=== PATIENT | female | born 1985 | race African-American/Black ===

== ENCOUNTER → 2021-09-29 13:03 | Outpatient (BNVA) | payer MEDICAID, SELFPAY | PROVIDERS: PCP Internal Medicine; Visit Provider Psychiatry & Neurology Neurology | DX: R56.9 Unspecified convulsions (principal); G93.49 Other encephalopathy; Z79.899 Other long term (current) drug therapy | CPT/HCPCS: 99212 ==

== ENCOUNTER → 2021-12-22 08:31 | Outpatient (BNVA) | payer MEDICAID, SELFPAY | PROVIDERS: PCP Internal Medicine; Visit Provider Psychiatry & Neurology Neurology | DX: R56.9 Unspecified convulsions (principal); G93.49 Other encephalopathy | CPT/HCPCS: 99212 ==

== ENCOUNTER → 2022-04-18 10:28 | Outpatient (BNVA) | payer MEDICAID, SELFPAY | PROVIDERS: PCP Internal Medicine; Visit Provider Psychiatry & Neurology Neurology | DX: R56.9 Unspecified convulsions (principal); G93.49 Other encephalopathy | CPT/HCPCS: 99212 ==

== ENCOUNTER → 2022-10-19 09:32 | Outpatient (BNVA) | payer OTHER, SELFPAY | PROVIDERS: PCP Internal Medicine; Visit Provider Psychiatry & Neurology Neurology | DX: G93.49 Other encephalopathy (principal); R56.9 Unspecified convulsions | CPT/HCPCS: 99212 ==

== ENCOUNTER 2023-04-26 09:15 | Outpatient (AMB) | payer OTHER, SELFPAY ==
--- NOTE | 2023-04-26 09:18 | A.OFFVIS_ITS ---
Intake Vital Signs 04/26/23 09:19 Height 4 ft 10 in Weight 103 lb 2 oz BMI 21.6 BP 112/62 Blood Pressure Location Lt brachial Position Sitting Respiration 17 Pulse 73 Pulse Source Pulse Oximeter Pulse Oximetry (%) 99 Oxygen Delivery Method Room Air Intake Visit Reasons: 6m f/u seizures - LVM Intake Note: Pt presents for a 6 month follow up for seizures. She is here with her mother who reports she has been the same since last visit. Border Measurer And Cutter Required: No Allergies amoxicillin Allergy (Intermediate, Verified 04/26/23 09:18) rash orange juice Allergy (Unknown, Verified 04/26/23 09:18) Hives tomato Allergy (Unknown, Verified 04/26/23 09:18) Hives Medication List - Last Reconciled 04/26/23 by Ina Terrazas MD cholecalciferol (vitamin D3) (Baby Vitamin D3) 10 mcg PO DAILY clindamycin phosphate 1% topical BID PRN dorzolamide-timolol 22.3-6.8 mg/mL 1 drp ophthalmic (eye) BID fluocinonide 0.05% topical 3XW ketoconazole 2% topical Lamictal (lamotrigine) 100 mg PO BID 90 days NS polyethylene glycol 3350 (Miralax) 17 grams PO DAILY tretinoin 0.05% (Retin-A) appl topical HPI HPI Comments History of Present Illness Details 37y/o female with static encephelopathy, developmental delay, blindness comes for follow up of her seizure disorder. She is accompanied by mother who help with history. OTC refresh drops helps her eyes. she is doing good.Her ears are good.No episodes of eye discomfort. Her seizures are stable on lamictal 100mg bid. Her bowel movements are better. Mood is better. Sleep is good. Needs a female Carpenters recommendation. [facility] Medical History Developmental delay of gross and fine motor function Seizures Blindness Static encephalopathy Surgical History H/O eye surgery Social History Alcohol intake: never Patient Tobacco Use Status: Never used Tobacco Physical Exam Vital Signs: Last Vital Signs Pulse 73 04/26/23 09:19 Resp 17 04/26/23 09:19 BP 112/62 04/26/23 09:19 Pulse Ox 99 04/26/23 09:19 Oxygen Delivery Method Room Air 04/26/23 09:19 BMI result Body Mass Index 21.6 Const General: cooperative, healthy appearing and comfortable Nutritional Appearance: average body habitus Orientation/consciousness: oriented to person Neuro Other: mild lordosis and tilt to left General: oriented to person, moves all extremities and no focal motor deficits Assessment & Plan Assessment & Plan (1) Seizures: Code(s): R56.9 - Unspecified convulsions (2) Static encephalopathy: Code(s): G93.49 - Other encephalopathy Plan continue lamictal 100mg bid Continue OTC refresh drops continue vitamins Orders: Orders Comprehensive Met. Panel Today F82 - Specific developmental disorder of motor function, R56.9 - Unspecified convulsions Complete Blood Count Auto Diff Today F82 - Specific developmental disorder of motor function, R56.9 - Unspecified convulsions Coding Level of Care Code Est Pt Level 4 (32831) Diagnoses Seizures R56.9 Static encephalopathy G93.49
[2023-04-26 09:19] VITALS: BP 112/62; PULSE 73; RESP 17; O2SAT 99; BMI 21.6
== END 2023-04-26 09:42 | disposition home or self-care (01) ==
PROVIDERS: Visit Provider Psychiatry & Neurology Neurology
DX: R56.9 Unspecified convulsions (principal); G93.49 Other encephalopathy
CPT/HCPCS: 99214

== ENCOUNTER → 2023-04-26 09:15 | Outpatient (BNVA) | payer OTHER, SELFPAY | PROVIDERS: Visit Provider Psychiatry & Neurology Neurology | DX: R56.9 Unspecified convulsions (principal); G93.49 Other encephalopathy | CPT/HCPCS: 99212 ==

== ENCOUNTER 2023-09-27 13:52 | Outpatient (AMB) | payer OTHER, SELFPAY ==
--- NOTE | 2023-09-27 13:58 | MHC.OFFVIS ---
Intake Vital Signs 09/27/23 14:01 Height 4 ft 10 in Weight 94 lb 4 oz BMI 19.7 BP 96/62 Blood Pressure Location Rt brachial Position Sitting Respiration 16 Pulse 78 Pulse Source Pulse Oximeter Intake Visit Reasons: 5 mnts f/u for Seizures-LVM Intake Note: Pt presents for a 5 month follow up for seizures. Advisory Software Engineer Required: No Allergies amoxicillin Allergy (Intermediate, Verified 09/27/23 14:00) rash orange juice Allergy (Unknown, Verified 09/27/23 14:00) Hives tomato Allergy (Unknown, Verified 09/27/23 14:00) Hives HPI HPI Comments History of Present Illness Details 38y/o female with static encephelopathy,developmental delay, blindness comes for follow up of her seizure disorder. She is accompanied by mother who help with history. OTC refresh drops helps her eyes. she is doing good.Her ears are good.No episodes of eye discomfort. Her seizures are stable on lamictal 100mg bid. Her bowel movements are better. Mood is better. Sleep is good. [facility] Medical History Developmental delay of gross and fine motor function Seizures Blindness Static encephalopathy Surgical History H/O eye surgery Social History Alcohol intake: never Patient Tobacco Use Status: Never used Tobacco Physical Exam Vital Signs: Last Vital Signs Pulse 78 09/27/23 14:01 Resp 16 09/27/23 14:01 BP 96/62 09/27/23 14:01 BMI result Body Mass Index 19.7 Const General: cooperative, healthy appearing and comfortable Nutritional Appearance: average body habitus Orientation/consciousness: oriented to person Neuro Other: mild lordosis and tilt to left General: oriented to person, moves all extremities and no focal motor deficits Assessment & Plan Assessment & Plan (1) Seizures: Code(s): R56.9 - Unspecified convulsions (2) Static encephalopathy: Code(s): G93.49 - Other encephalopathy Plan continue lamictal 100mg bid Continue OTC refresh drops continue vitamins Coding Level of Care Code Est Pt Level 4 (12831) Diagnoses Seizures R56.9 Static encephalopathy G93.49
[2023-09-27 14:01] VITALS: BP 96/62; PULSE 78; RESP 16; BMI 19.7
== END 2023-09-27 14:21 | disposition home or self-care (01) ==
LOC: HO.HSMS 13:52
PROVIDERS: PCP Internal Medicine; Visit Provider Psychiatry & Neurology Neurology
DX: R56.9 Unspecified convulsions (principal); G93.49 Other encephalopathy
CPT/HCPCS: 99214

== ENCOUNTER → 2023-09-27 13:52 | Outpatient (BNVA) | payer OTHER, SELFPAY | PROVIDERS: PCP Internal Medicine; Visit Provider Psychiatry & Neurology Neurology | DX: G93.49 Other encephalopathy (principal); R56.9 Unspecified convulsions | CPT/HCPCS: 99212 ==

== ENCOUNTER 2024-04-01 08:19 | Outpatient (AMB) | payer OTHER, SELFPAY ==
[2024-04-01 08:28] VITALS: BP 108/70; BMI 19.5
--- NOTE | 2024-04-01 08:28 | A.OFFVIS_ITS ---
Vital Signs 04/01/24 08:28 Height 4 ft 10 in Weight 93 lb 6 oz BMI 19.5 BP 108/70 Blood Pressure Location Rt brachial Position Sitting Intake Visit Reasons: 6 month F/U Intake Note: Patient presents for follow up. patient not sleeping again. Allergies amoxicillin Allergy (Intermediate, Verified 04/01/24 08:35) rash orange juice Allergy (Unknown, Verified 04/01/24 08:35) Hives tomato Allergy (Unknown, Verified 04/01/24 08:35) Hives Medication List - Last Reconciled 04/01/24 by Ina Terrazas MD cholecalciferol (vitamin D3) (Baby Vitamin D3) 10 mcg PO DAILY clindamycin phosphate 1% topical BID PRN dorzolamide-timolol 22.3-6.8 mg/mL 1 drp ophthalmic (eye) BID fluocinonide 0.05% topical 3XW ketoconazole 2% topical Lamictal (lamotrigine) 100 mg PO BID 30 days NS polyethylene glycol 3350 (Miralax) 17 grams PO DAILY tretinoin 0.05% (Retin-A) appl topical HPI Comments Details: 38y/o female with static encephelopathy,developmental delay, blindness comes for follow up of her seizure disorder. She is accompanied by mother who help with history. No seizure . But she lost about 7 lbs and her mother thinks it is related to stress - from first mammogram and also deep cleaning. OTC refresh drops helps her eyes. she is doing good.Her ears are good.No episodes of eye discomfort. Her seizures are stable on lamictal 100mg bid. Her bowel movements are better. Mood is better. Sleep is good. [facility] Medical History Developmental delay of gross and fine motor function Seizures Blindness Static encephalopathy Surgical History H/O eye surgery Social History Alcohol intake: never Patient Tobacco Use Status: Never used Tobacco Physical Exam Vital Signs: Last Vital Signs BP 108/70 04/01/24 08:28 BMI result Body Mass Index 19.5 Const General: cooperative, healthy appearing and comfortable Nutritional Appearance: average body habitus Orientation/consciousness: oriented to person Neuro Other: mild lordosis and tilt to left General: oriented to person, moves all extremities and no focal motor deficits Assessment & Plan Assessment & Plan (1) Seizures: Code(s): R56.9 - Unspecified convulsions Category: Medical (2) Static encephalopathy: Code(s): G93.49 - Other encephalopathy Category: Medical Plan continue lamictal 100mg bid- BRAND NAME ONLY .Patient has reaction to generic lamotrigine with breakthrough seizures. Continue OTC refresh drops continue vitamins weight loss likely related to stress - from mammogram . she will a good candidate for MRI breast instead of mammogram. Medications: Changed From Lamictal (lamotrigine) 100 mg PO BID 30 days 60 tabs 6RF NS To Lamictal (lamotrigine) Needs name brand only - patient has reaction to generic lamotrigine 100 mg PO BID 30 days 60 tabs 6RF NS Coding Level of Care Code Est Pt Level 4 (83751) Complex EM visit Add On G2211 Diagnoses Seizures R56.9 Static encephalopathy G93.49
== END 2024-04-01 09:12 | disposition home or self-care (01) ==
PROVIDERS: PCP Internal Medicine; Visit Provider Psychiatry & Neurology Neurology
DX: R56.9 Unspecified convulsions (principal); G93.49 Other encephalopathy
CPT/HCPCS: 99214; G2211

== ENCOUNTER → 2024-04-01 08:19 | Outpatient (BNVA) | payer OTHER, SELFPAY | PROVIDERS: PCP Internal Medicine; Visit Provider Psychiatry & Neurology Neurology | DX: R56.9 Unspecified convulsions (principal); G93.49 Other encephalopathy | CPT/HCPCS: 99212 ==

== ENCOUNTER 2024-10-14 07:57 | Outpatient (AMB) | payer OTHER, SELFPAY ==
[2024-10-14 08:01] VITALS: BP 104/70; PULSE 87; O2SAT 98; BMI 19.3
--- NOTE | 2024-10-14 08:01 | A.OFFVIS_ITS ---
Vital Signs 10/14/24 08:01 Height 4 ft 10 in Weight 92 lb 8 oz BMI 19.3 BP 104/70 Blood Pressure Location Rt brachial Position Sitting Pulse 87 Pulse Source Pulse Oximeter Pulse Oximetry (%) 98 Oxygen Delivery Method Room Air Intake Visit Reasons: 6 month F/U-LVM Intake Note: Patient presents for follow up seizures. Allergies amoxicillin Allergy (Intermediate, Verified 10/14/24 08:04) rash orange juice Allergy (Unknown, Verified 10/14/24 08:04) Hives tomato Allergy (Unknown, Verified 10/14/24 08:04) Hives Medication List - Last Reconciled 10/14/24 by Ina Terrazas MD cholecalciferol (vitamin D3) (Baby Vitamin D3) 10 mcg PO DAILY cholecalciferol (vitamin D3) 10 mcg PO DAILY clindamycin phosphate 1% topical BID PRN dorzolamide-timolol 22.3-6.8 mg/mL 1 drp ophthalmic (eye) BID fluocinonide 0.05% topical 3XW ketoconazole 2% topical Lamictal (lamotrigine) 100 mg PO BID 30 days NS polyethylene glycol 3350 (Miralax) 17 grams PO DAILY tretinoin 0.05% (Retin-A) appl topical HPI Comments Details: 39y/o female with static encephelopathy,developmental delay, blindness comes for follow up of her seizure disorder. She is accompanied by mother who help with history. No seizure . But she lost about 7 lbs and her mother thinks it is related to stress - from first mammogram and also deep cleaning. OTC refresh drops helps her eyes. she is doing good.Her ears are good.No episodes of eye discomfort. Her seizures are stable on lamictal 100mg bid. Her bowel movements are better. Mood is better. Sleep is good. [facility] Medical History Developmental delay of gross and fine motor function Seizures Blindness Static encephalopathy Surgical History H/O eye surgery Social History Alcohol intake: never Patient Tobacco Use Status: Never used Tobacco Physical Exam Vital Signs: Last Vital Signs Pulse 87 10/14/24 08:01 BP 104/70 10/14/24 08:01 Pulse Ox 98 10/14/24 08:01 Oxygen Delivery Method Room Air 10/14/24 08:01 BMI result Body Mass Index 19.3 Const General: cooperative, healthy appearing and comfortable Nutritional Appearance: average body habitus Orientation/consciousness: oriented to person Neuro Other: mild lordosis and tilt to left General: oriented to person, moves all extremities and no focal motor deficits Assessment & Plan Assessment & Plan (1) Seizures: Code(s): R56.9 - Unspecified convulsions Category: Medical (2) Static encephalopathy: Code(s): G93.49 - Other encephalopathy Category: Medical Plan continue lamictal 100mg bid- BRAND NAME ONLY .Patient has reaction to generic lamotrigine with breakthrough seizures. Continue OTC refresh drops continue vitamins weight loss likely related to stress - from mammogram . she will a good candidate for MRI breast instead of mammogram. Medications: Refilled Lamictal (lamotrigine) Needs name brand only - patient has reaction to generic lamotrigine 100 mg PO BID 30 days 60 tabs 6RF NS Coding Level of Care Code Est Pt Level 4 (51976) Diagnoses Seizures R56.9 Static encephalopathy G93.49
--- OUTSIDE RECORDS SUMMARY | 2024-10-14 08:01 | XMS_ITS ---
Author Organization [facility] Address [address] [address] Care Team Providers Care Master Data Analyst Name Role Phone Marija Hidalgo Primary Care Provider SIVAN Hoskins Unavailable [phone] REASON FOR VISIT 3 month f/u Encounters Encounter Location Date Provider Diagnosis [facility] [address] [address] 08/02/2024 SIVAN ÁLVAREZ Plan Of Treatment No Information Progress Notes * Santa LANCASTERDOB:1985 (39 yo F)Acc No.[id number]:08/02/2024 Patient:?Gian LANCASTERoney Provider:?Sivan Álvarez DPM :1985???Age:39 Y???Sex:Female D ate:08/02/2024 Phone: Address:[address] [phone] Pcp:Marija Hidalgo Subjective: * Chief Complaints: * ???1. 3 month f/u. * Medical History:? Objective: * Vitals:? Assessment: Plan: * Treatment: * Billing Information: * Visit Code:? * Procedure Codes:? * Electronic signature of PRASANNA ÁLVAREZ D.P.M on 10/14/2024 at 08:01 AM EDT Sign off status: Pending * Provider:?Sivan Álvarez DPM Date:? 08/02/2024 Generated for Casandra paz/Lin/eTransmitting on:?10/14/2024 08:01 AM EDT
--- OUTSIDE RECORDS SUMMARY | 2024-10-14 08:01 | XMS_ITS | Patient Health Record ---
Author Organization [facility] Address [address] [address] Care Team Providers Care Marketing Lead Name Role Phone Marija Hidalgo Primary Care Provider CHATA Hoskins Unavailable [phone] Allergies Allergen (clinical drug ingredient) Drug/Non Drug Allergy documented on EMR Reaction Allergy Type Onset Date Status Tom Green Unknown Drug Allergy Active amoxicillin Amoxicillin Unknown Drug Allergy Act lionel Tomatoes Unknown Allergy Active Reason For Referral No Information Medications Medication SIG (Take, Route, Frequency, Duration) Notes Start Date End Date Status Tretinoin 0.025 % 1 application in the evening to face Externally Once a day Active Polyethylene Glycol 3350 17 GM/SCOOP 1 scoop mixed with 8 ounces of fluid Orally Once a day Active lamoTRIgine 100 MG 1 tablet Orally Once a day Active Ketoconazole 2 % 1 application Grinding Wheel Inspector ally Once a day Active Dorzolamide HCl-Timolol Mal 2-0.5 % 1 drop into affected eye Ophthalmic Twice a day Active Aqueous Vitamin D 10 MCG/ML as directed Orally Active Problems Problem Type SNOMED Code ICD Code Onset Dates Problem Status W/U Status Risk Notes Problem [id number] Acquired hammer toe (M20.40) Active confirmed Vital Signs Heart Rate 76 /min 04/26/2024 Temperature 97.4 degrees Fahrenheit 04/26/2024 Respiratory Rate 12 /min 04/26/2024 Height 4ft 9in in 04/26/2024 Weight 92.7 lbs 04/26/2024 BMI 20.06 kg/m2 04/26/2024 Encounters Encounter Location Date Provider Diagnosis [facility] [address] [address] 04/26/2024 CHATA STEWART 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 ; 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 ; Acquired hammer toe M20.40 ; Flat foot [pes planus] (acquired), right foot M21.41 and Flat foot [pes planus] (acquired), left foot M21.42 [facility] [address] [address] 04/19/2024 CHATA STEWART [facility] [address] [address] 09/18/2024 CHATA STEWART Assessments Encounter Date Diagnosis (ICD Code) Assessment Notes Treatment Notes Treatment Clinical Notes Section Notes 04/26/2024 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 Time was 45 minutes spent in review of all these facets including face to face discussion with the patient regarding my findings and in discussion of a current and future treatment plan. 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 We discussed this is caused by genetics and it is a structural deformity. We discussed this is also compounded by the elongated 2nd metatarsal. We discussed orthotics can help stabilize the deformity but will not correct the deformity. Toe spacers can help separate the toes but will not correct the deformity. Wider shoes can help with improvement of pain but will not alter the deformity. I dispensed Velcro toe straps to use on the 2nd and 3rd toes and the 4th and 5th toes. She is to wear this nightly for the next 3 months. We discussed a follow-up at that time to evaluate positioning of the toes. We discussed over the counter inserts and appropriate sneakers for the patient. We discussed the OTC inserts are beneficial in older pairs of shoes. I would like to see the patient back in 3 months for another evaluation. The patient is in agreement with this plan. 04/26/2024 Acquired hammer toe (ICD-10 - M20.40) 04/26/2024 Flat foot [pes planus] (acquired), right foot (ICD-10 - M21.41) 04/26/2024 Flat foot [pes planus] (acquired), left foot (ICD-10 - M21.42) Plan Of Treatment Pending Test Test Name Order Date X ray : Foot, left 3v 04/26/2024 X ray : Foot, right 3v 04/26/2024 Medical (General) History Medical History History ICD Code cerumen impaction constipation developmental delay glaucoma history of vitamin D deficiency psoriasis raynauds phenomenon seizure disorder COVID vaccinated X 5 Surgical History Surgery Date(Month/Year) strabismus repair
--- OUTSIDE RECORDS SUMMARY | 2024-10-14 08:01 | XMS_ITS ---
Author Organization [facility] Address [address] [address] Care Team Providers Care Engine Lathe Tender Name Role Phone Marija Hidalgo Primary Care Provider SIVAN Hoskins Unavailable [phone] Allergies Allergen (clinical drug ingredient) Drug/Non Drug Allergy documented on EMR Reaction Allergy Type Onset Date Status Redkey Unknown Drug Allergy Active amoxicillin Amoxicillin Unknown Drug Allergy Act lionel Tomatoes Unknown Allergy Active REASON FOR VISIT Rt foot toes overlapping Medications Medication SIG (Take, Route, Frequency, Duration) Notes Start Date End Date Status Tretinoin 0.025 % 1 application in the evening to face Externally Once a day Active Polyethylene Glycol 3350 17 GM/SCOOP 1 scoop mixed with 8 ounces of fluid Orally Once a day Active lamoTRIgine 100 MG 1 tablet Orally Once a day Active Ketoconazole 2 % 1 application Public Stenographer ally Once a day Active Dorzolamide HCl-Timolol Mal 2-0.5 % 1 drop into affected eye Ophthalmic Twice a day Active Aqueous Vitamin D 10 MCG/ML as directed Orally Active Problems Problem Type SNOMED Code ICD Code Onset Dates Problem Status W/U Status Risk Notes Problem [id number] Acquired hammer toe (M20.40) Active confirmed Vital Signs Temperature 97.4 degrees Fahrenheit 04/26/20 24 Heart Rate 76 /min 04/26/2024 Respiratory Rate 12 /min 04/26/2024 Height 4ft 9in in 04/26/2024 Weight 92.7 lbs 04/26/2024 BMI 20.06 kg/m2 04/26/2024 Encounters Encounter Location Date Provider Diagnosis [facility] [address] [address] 04/26/2024 SIVAN ÁLVAREZ 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 ; 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 Time was 45 minutes spent in review [...] patient is in agreement with this plan. Pending Test Test Name Order Date X ray : Foot, left 3v 04/26/2024 X ray : Foot, right 3v 04/26/2024 Next Appt Details Follow Up: 3 Months, Reason: Progress Notes * Santa LANCASTERDOB:1985 (38 yo F)Acc No.[id number]:04/26/2024 Patient:?Santa LANCASTER Provider:?Sivan Álvarez DPM :1985???Age:38 Y???Sex:Female D ate:04/26/2024 Phone: Address:[id number] Pcp:Marija Hidalgo Subjective: * Chief Complaints: * ???Rt foot toes overlapping * HPI: ???Constitutional:? This 38 y/o female presents to my office accompanied by her mother with a complaint of overlapping toes on both feet. Her mother has noticed this overlapping for the last year. The patient does not complain of pain, but her mother has noticed her limping at times. The right foot is worse than the left. Her mother has a difficult time finding shoes that fit her correctly due to her shoe size. She is looking for recommendations for the overlapping toes and shoes. She has no other foot complaints this visit. Allergies and medical history reviewed. * ROS:?GENERAL: Pt denies nausea, fever, vomiting, chills, or shortness of breath. Pt in NAD. ALLERGY: patient denies any new allergy HEME/ONC: patient denies any bleeding or clotting disorders CARDIOLOGY: pt denies chest pain, palpitations LUNGS: pt denies shortness of breath ABDOMEN: patient denies any bloating, abdominal pain, or swelling MUSCULOSKELETAL: See HPI, otherwise no joint pain or swelling, back pain, or muscle pain. SKIN: see HPI, otherwise no lesions, rash or itching NEURO: No persistent headache, weakness or numbness PSYCH: patient denies any current anxiety or depression The remainder of the review of systems is noncontributory. * Medical History:? * Surgical History:?strabismus repair * Hospitalization/Major Diagno stic Procedure:?Denies Past Hospitalization * Family History:?Father: hotel office manager bernadine kidney disease, hypertension, prostatic hypertrophy.?Mother: osteopenia.?Paternal aunt: type II diabetes.? * Social History:?Tobacco: never smoker Alcohol: never Lives with father, mother. * Medications:?TakingTretinoin 0.025 % Cream 1 application in the evening to face Externally Once a day Polyethylene Glycol 3350 17 GM/SCOOP Powder 1 scoop mixed with 8 ounces of fluid Orally Once a day lamoTRIgine 100 MG Tablet 1 tablet Orally Once a day Ketoconazole 2 % Cream 1 application Externally Once a day Dorzolamide HCl-Timolol Mal 2-0.5 % Solution 1 drop into affected eye Ophthalmic Twice a day Aqueous Vitamin D 10 MCG/ML Liquid as directed Orally Medication List reviewed and reconciled with the patientTaking Tretinoin 0.025 % Cream 1 application in the evening to face Externally Once a day Taking Polyethylene Glycol 3350 17 GM/SCOOP Powder 1 scoop mixed with 8 ounces of fluid Orally Once a day Taking lamoTRIgine 100 MG Tablet 1 tablet Orally Once a day Taking Ketoconazole 2 % Cream 1 application Externally Once a day Taking Dorzolamide HCl-Timolol Mal 2-0.5 % Solution 1 drop into affected eye Ophthalmic Twice a day Taking Aqueous Vitamin D 10 MCG/ML Liquid as directed Orally Medication List reviewed and reconciled with the patient * Allergies:?Domojhon kimmycristhianbeckicarline[Allergies Verified] Objective: * Vitals:?Wt:92.7lbs, Ht: 4ft 9in, BMI:20.06Index, HR:76/min, Temp:97.4F, RR:12/min, Ht-cm: 144.78, Wt-k.05 kg. * Examination: ???General Examination: ???GENERAL: Patient appears well nourished, with NAD. ?VASCULAR: Dorsalis pedis pulses are 2/4 bilaterally and Posterior tibial pulses are 2/4 bilaterally. Capillary filling time within normal limits the digits. Each foot temperature is within normal limits. ?NEUROLOGICAL: Sharp/dull sensation intact bilaterally, position sense intact bilaterally to the tibial tuberosity. ?ORTHOPEDIC: Good muscle strength 4+/5 of all flexors and extensors. Dorsi flexion of ankle , 0 degrees, plantar flexion WNL. No muscle atrophy. Flexible pes planus bilaterally, adductovarus of toes 3,4,5, bilaterally. Underlapping of the 4th toe on both feet. No pain on palpation or ROM of the toes bilaterally. ?DERMATOLOGICAL: No masses, openings, or skin lesions noted. Normal skin temperature, normal skin turgor. ?BIOMECHANICS: STJ ROM WNL, MTJ ROM WNL, 1st MPJ ROM WNL. On weight- bearing, adductovarus of toes 3,4,5 with underlapping of the 3rd toe bilaterally. ?SHOES: Drewsey shoes. 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 Plan: * Treatment: Notes: This is an outpatient visit for evaluation and management of a new patient, which required appropriate review of pertinent medical history, review of any previous imaging, review of all previous records, and examination and decision-making. Time was 45 minutes spent in review of all these facets including face to face discussion with the patient regarding my findings and in discussion of acurrent and future treatment plan. 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 We discussed this is caused by genetics and it is a structural deformity. We discussed this is also compounded bythe elongated 2nd metatarsal. We discussed orthotics can [...] the next 3 months. We discussed a follow- up at that time to evaluate positioningof the toes. We discussed over the counter inserts and appropriate sneakers for the patient. We discussed the OTC inserts are beneficial in older pairs of shoes. I would like to see the patient back in 3 months for another evaluation. The patient is in agreement with this plan.??2.?Acquired adductovarus rotation of toe of left foot?Imaging: X ray : Foot, left 3v* LEFT FOOT WEIGHT BEARING X-R AYS 3 VIEWS obtained during today's visit. There is a small medial bone spur of the distal phalanx of the right hallux. A synostosis of the distal and middle phalanx of the 3rd and 5th toe is observed. There is adductovarus rotation of toes 3,4,5. Slight medial curvature of the 2nd toe. There is underlapping of the 4th toe. The 2nd metatarsal is noted to be elongated. No evidence of arthritis of the right foot. No fracture noted. Increased talar declination angle on the lateral view with loss of medial arch indicating a pes planus deformity. 3.?Acquired hammer toe?Imaging: X ray : Foot, left 3v* LEFT FOOT WEIGHT BEARING X-R AYS 3 VIEWS obtained during today's visit. There is a small medial bone spur of the distal phalanx of the right hallux. A synostosis of the distal and middle phalanx of the 3rd and 5th toe is observed. There is adductovarus rotation of toes 3,4,5. Slight medial curvature of the 2nd toe. There is underlapping of the 4th toe. The 2nd metatarsal is noted to be elongated. No evidence of arthritis of the right foot. No fracture noted. Increased talar declination angle on the lateral view with loss of medial arch indicating a pes planus deformity. ?Imaging: X ray : Foot, right 3v* RIGHT FOOT WEIGHT BEARING X- RAYS 3 VIEWS obtained during today's visit. There is a small medial bone spur of the distal phalanx of the right hallux. A synostosis of the distal and middle phalanx of the 5th toe is observed. There is adductovarus rotation of toes 3,4,5. Slight medial curvature of the 2nd toe. There is underlapping of the 4th toe. The 2nd metatarsal is noted to be elongated. No evidence of arthritis of the right foot. No fracture noted. Increased talar declination angle on the lateral view with loss of medial arch indicating a pes planus deformity. 4.?Flat foot [pes planus] (acquired), right foot?Imaging: X ray : Foot, right 3v* RIGHT FOOT WEIGHT BEARING X- RAYS 3 VIEWS obtained during today's visit. There is a small medial bone spur of the distal phalanx of the right hallux. A synostosis of the distal and middle phalanx of the 5th toe is observed. There is adductovarus rotation of toes 3,4,5. Slight medial curvature of the 2nd toe. There is underlapping of the 4th toe. The 2nd metatarsal is noted to be elongated. No evidence of arthritis of the right foot. No fracture noted. Increased talar declination angle on the lateral view with loss of medial arch indicating a pes planus deformity. 5.?Flat foot [pes planus] (acquired), left foot?Imaging: X ray : Foot, left 3v* LEFT FOOT WEIGHT BEARING X-R AYS 3 VIEWS obtained during today's visit. There is a small medial bone spur of the distal phalanx of the right hallux. A synostosis of the distal and middle phalanx of the 3rd and 5th toe is observed. There is adductovarus rotation of toes 3,4,5. Slight medial curvature of the 2nd toe. There is underlapping of the 4th toe. The 2nd metatarsal is noted to be elongated. No evidence of arthritis of the right foot. No fracture noted. Increased talar declination angle on the lateral view with loss of medial arch indicating a pes planus deformity. * Procedure Codes:?63516 X-RAY EXAM OF FOOT 3 Views, Units: 2.00 * Follow Up:?3 Months * Billing Information: * Visit Code:? 03499 Office Visit, New Pt., Level 3. * Procedure Codes:? 05330 X-RAY EXAM OF FOOT 3 Views. Units: 2.00. * Sign off status: Completed true * Provider:Rabia Álvarez DPM Date:? 04/26/2024 Generated for Casandra paz/Lin/Lizbethitting on:?10/14/2024 08:01 AM EDT History and Physical Notes * HPI (History of Present Illness) Category Sub-Category Detail Notes Category Not es Constitutional This 38 y/o f emale presents to my office accompanied by her mother with a complaint of overlapping toes on both feet. Her mother has noticed this overlapping for the last year. The patient does not complain of pain, but her mother has noticed her limping at times. The right foot is worse than the left. Her mother has a difficult time finding shoes that fit her correctly due to her shoe size. She is looking for recommendations for the overlapping toes and shoes. She has no other foot complaints this visit. Allergies and medical history reviewed. Examination Category Sub-Category Detail Notes Category Not es General Examination GENERAL: Patient appears well nourished, with NAD. VASCULAR: Dorsalis pedis pulses are 2/4 bilaterally and Posterior tibial pulses are 2/4 bilaterally. Capillary filling time within normal limits the digits. Each foot temperature is within normal limits. NEUROLOGICAL: Sharp/dull sensation intact bilaterally, position sense intact bilaterally to the tibial tuberosity. ORTHOPEDIC: Good muscle strength 4+/5 of all flexors and extensors. Dorsi flexion of ankle , 0 degrees, plantar flexion WNL. No muscle atrophy. Flexible pes planus bilaterally, adductovarus of toes 3,4,5, bilaterally. Underlapping of the 4th toe on both feet. No pain on palpation or ROM of the toes bilaterally. DERMATOLOGICAL: No masses, openings, or skin lesions noted. Normal skin temperature, normal skin turgor. BIOMECHANICS: STJ ROM WNL, MTJ ROM WNL, 1st MPJ ROM WNL. On weight-bearing, adductovarus of toes 3,4,5 with underlapping of the 3rd toe bilaterally. SHOES: Drewsey shoes.
--- OUTSIDE RECORDS SUMMARY | 2024-10-14 08:02 | XMS_ITS ---
Author Organization [facility] Address [address] [address] Care Team Providers Care Equalizing Saw Operator Name Role Phone Rocky Marija Primary Care Provider CHATA Hoskins [phone] REASON FOR VISIT Disability request Encounters Encounter Location Date Provider Diagnosis [facility] [address] [address] 09/18/2024 CHATA STEWART Plan Of Treatment No Information Progress Notes * Santa LANCASTERDOB:1985 (39 yo F)Acc No.[id number]:09/18/2024 Patient:?Santa LANCASTER :1985???Age:39 Y???Sex:Female Phone: Address:[address] [place] [address] * true * Date:? Generated for Casandra paz/Lin/eTransmitting on:?10/14/2024 08:01 AM EDT
--- OUTSIDE RECORDS SUMMARY | 2024-10-14 08:02 | XMS_ITS | Data Portability ---
Author Organization [place] - [facility], Allergy Address [address] [address] Care Team Providers Care Chiseler Head Name Role Phone MARILU WEISS Primary Care Provider Assessment Encounter Date Assessment Date Assessment LastModified by Organization Details LastModified Time 11/15/2023 11/15/2023 38 year old female presents for routine cerumen debridement. Cerumen impaction removed bilaterally. Bilateral TMs are intact with well aerated middle ear spaces. Follow up in 4 months for routine debridement. [email or web address] Not available 11/15/2023 09:47:24 03/27/2024 03/27/2024 38 year old female presents for routine cerumen debridement. Cerumen impaction removed bilaterally. Bilateral TMs are intact with well aerated middle ear spaces. Follow up in 4 months for routine debridement. [email or web address] Not available 03/27/2024 09:24:59 07/31/2024 07/31/2024 39 year old female presents for routine cerumen debridement. Cerumen impaction removed bilaterally. Bilateral TMs are intact with well aerated middle ear spaces. Follow up in 4 months for routine debridement. [email or web address] Not available 07/31/2024 09:18:11 Plan of Treatment Reminders Order Date Submit Date Provider Last Modified By Organization Details Last Modified Time Details Appointments Establish ed 15 2024 09:30A M ALEXANDER JOHNSON PA-C Not available Not available Not available Lab None recorded. Referral None recorded. Procedures None recorded. Surgeries None recorded. Imaging None recorded. Medication Orders None recorded. Patient TargetsNo targets recorded. Patient InstructionsNo instructions recorded. Reason for Referral None Reported. Problems Name Problem SNOMED Code Status Onset Date Resolution Date Notes Provider Name and Address Organization Details Recorded Time Impacted cerumen in right ear [id number] 63454 Active 2016 Impacted cerumen, right ear; Note: Date Diagnosed : 10/04/2016 2:38 PM (H61.21) Not Available [facility] 4 02:13:39 Impacted cerumen of bilateral ears [id number] 49227 Active 2021 Impacted cerumen, bilateral ; Note: Date Diagnosed : 05/17/2022 10:32 AM (H61.23) Impacte d cerumen, bilateral ; Note: Date Diagnosed : 07/28/2020 9:18 AM (H61.23) ; Start Date : 1 Impacte d cerumen, bilateral ; Note: Date Diagnosed : 0 9:32 AM (H61.23) ; Start Date : 0 Impacte d cerumen, bilateral ; Note: Date Diagnosed : 10/04/2018 10:59 AM (H61.23) ; Start Date : 9 Impacte d cerumen, bilateral ; Note: Date Diagnosed : 5 11:17 AM (H61.23) ; Start Date : 5 Not Available [facility] 4 02:14:47 Problem Notes None recorded. Procedures Surgical History Date Name Laterality Status Provider Name and Address Organization Details Recorded Time 5 Cerumen removal without microscope bilat completed ALEXANDER JOHNSON PA-C [address] [place] [address], [address], [place] - [facility] 07/31/2024 09:18:02 4 Cerumen removal without microscope bilat completed ALEXANDER JOHNSON PA-C [address] [place] [address],[address], [address], [place] - [facility] 03/27/2024 09:41:10 4 Cerumen removal without microscope bilat completed ALEXANDER JOHNSON PA-C [address] [facility],[address], [address], [place] - [facility] 11/15/2023 09:46:43 Imaging Results None recorded. Procedure Notes None recorded. Medical Equipment None Reported. Allergies Allergen ID Allergen Name Allergen Category Reaction Reaction Severity Criticality Documentation Date Start Date Code Code System Note Provider Name and Address Organization Details Recorded Time 75775 orange juice food,medi cation other Not available Not available 10/24/2023 35705 66 RxNorm React ion: unkno wn, unspe cifie d;; Not Available [facility] 4 00:48:36 55025 amoxicill in medicatio n other Not available Not available 10/24/2023 723 RxNorm React ion: unkno wn, unspe cifie d;; Not Available [facility] 4 00:48:43 Medications Name Sig Start Date Stop Date Status Note LastModified by Organization Details LastModified Time vitamin d 10 mcg/ml liqd active Not Available Not Available Not Available ketoconazole 2 % shampoo APPLY TO DRY SCALP FOR 10 MIN, THEN LATHER AND FOLLOW WITH A MOISTURIZIN G SHAMPOO ONCE WEEKLY active Not Available Not Available Not Available triazolam 0.25 mg tablet TAKE 1 TABLET BY MOUTH BEFORE BED AND 1 TAB 1 HOUR BEFORE APPOINTMENT active Not Available Not Available Not Available polyethylene glycol 3350 17 gram oral powder packet DISSOLVE 1 PACKET IN 4-8 OUNCES OF BEVERAGE AND TAKE BY MOUTH ONCE DAILY active Not Available Not Available No t Available Retin-A 0.025 % topical cream APPLY PEA SIZED AMOUNT TO THE FACE AND THIGHS AT NIGHT. START BY ALTERNATING WITH 0.025% [id number] active Not Available Not Available No t Available fluocinonide 0.05 % topical ointment APPLY TO AFFECTED AREA ON THE SCALP THREE TIMES WEEKLY NEEDED FOR BREAKAGE active Not Available Not Available No t Available tretinoin 0.05 % topical cream APPLY PEA SIZED AMOUNT TO THE FACE AND THIGHS AT NIGHT. active Not Available Not Available No t Available Lamictal 100 mg tablet TAKE 1 TABLET BY MOUTH TWICE A DAY active Not Available Not Available No t Available dorzolamide 22.3 mg-timolol 6.8 mg/mL eye drops INSTILL 1 DROP IN THE RIGHT EYE TWICE DAILY active Not Available Not Available Not Available triamcinolon e acetonide 0.1 % lotion APPLY TO THE SCALP 1-2 TIMES DAILY FOR UP TO TWO WEEKS, BREAK ONE WEEK, REPEAT NEEDED active Not Available Not Available No t Available polyethylene glycol 3350 17 gram/dose oral powder DISSOLVE 17 GM INTO A BEVERAGE BY MOUTH DAILY,X30 DAYS. CAN NOT TAKE GAVILAX. PADAGIS ONLY active Not Available Not Available No t Available ketoconazole 2 % topical cream PLEASE SEE ATTACHED FOR DETAILED DIRECTIONS active Not Available Not Available N ot Available betamethason e dipropionate 0.05 % topical ointment APPLY TO AFFECTED AREAS ON SCALP EVERY OTHER DAY active Not Available Not Available No t Available clindamycin 1 % lotion APPLY THIN LAYER TO AFFECTED AREAS ON FACE TWICE A DAY SPOT TREATMENT NEEDED active Not Available Not Available No t Available cholecalcife rol (vitamin D3) 10 mcg/mL (400 unit/mL) oral drops TAKE 1 ML BY MOUTH DAILY WITH FOOD active Not Available Not Available No t Available Vitals Date Recorded Body height Body mass index (BMI) Body weight Provider Name and Address Organization Details Last Updated DateTime 03/27/2024 147.32 cm 20.4 kg/m2 92362.[address] [facility] 03/27/2024 09:14:01 Date Recorded Body height Body mass index (BMI) Body weight Provider Name and Address Organization Details Last Updated DateTime 11/15/2023 147.32 cm 20.4 kg/m2 91837.[address] [facility] 11/15/2023 09:34:00 Date Recorded Body height Provider Name an d Address Organization Details Last Updated DateTime 07/31/2024 147[address] [facility] 07/31/2024 09:17:22 Social History None recorded. Functional Status None recorded. Mental Status None recorded. Family History Nothing Reported. Medical History No medical history recorded. Gynecological HistoryNo gynecological history recorded. Obstetrics History GPAL:G 0 P 0 0 0 0 Past Encounters Encounter ID Performer Location Encounter Start Date Encounter Closed Date Diagnosis/Indication Diagnosis SNOMED-CT Code Diagnosis ICD10 Code Diagnosis Note [id number] ALEXANDER JOHNSON PA-C [facility] [address] [address] 11/15/2023 09:15:13 11/15/2023 09:44:04 Impacted cerumen of bilateral ears [id number] 879820 H61.23 [id number] ALEXANDER JOHNSON PA-C [facility] [address] [place] [address] 03/27/2024 09:10:36 03/27/2024 09:35:54 Impacted cerumen of bilateral ears [id number] 922583 H61.23 [id number] ALEXANDER JOHNSON PA-C [facility] [address] [place] [address] 07/31/2024 09:13:00 07/31/2024 09:31:58 Impacted cerumen of bilateral ears [id number] 262069 H61.23 Health Concerns Section Related Observation LastModified by Organization Detai ls LastModified Time None Recorded Concern Status LastModified by Organization Details LastModified Time None Recorded Advance Directives Directive None Recorded Payers Encounter Date Sequence Insurance Name Policy Number Policy Bear Covered Member ID Bear Member ID Guarantor Name 11/15/2023 1 [facility] (MEDICAID HMO) [id number] [place] [id number] Bri Padilla 03/27/2024 1 [facility] (MEDICAID HMO) [id number] [place] [id number] Bri Randy 07/31/2024 1 [facility] (MEDICAID HMO) [id number] [place] F [place] [id number] Bri Randy Notes Date Note Type Note Provider Name and Address Organization Details Recorded Time 11/15/2023 text/html 38 year old willow zambrano presents for routine cerumen debridement. The patient is legally blind, has history of developmental delay, and has difficulty tolerating cerumen debridement. No concerns today. Using wax softening drops. DARRYL TELLEZ MD [address] [place] [address], [place], [address], [facility] - [facility] 11/15/2023 11:20:07 03/27/2024 text/html 38 year old willow zambrano presents for routine cerumen debridement. The patient is legally blind, has history of developmental delay, and has difficulty tolerating cerumen debridement. No concerns today. Using wax softening drops. RENETTA CAMARGO MD [address] [facility],[place] [address], [place], [address], [place] - [facility] 03/27/2024 10:30:52 07/31/2024 text/html 39 year old willow zambrano presents for routine cerumen debridement. The patient is legally blind, has history of developmental delay, and has difficulty tolerating cerumen debridement. No concerns today. Using wax softening drops. SCOTT BRONSON MD [address] [facility],[place] [address], [place], [address], [facility] - [facility] 07/31/2024 17:39:35 OBGyn Episode No OBEpisode recorded.
== END 2024-10-14 08:28 | disposition home or self-care (01) ==
LOC: HO.HSMS 07:57
PROVIDERS: PCP Internal Medicine; Visit Provider Psychiatry & Neurology Neurology
DX: R56.9 Unspecified convulsions (principal); G93.49 Other encephalopathy
CPT/HCPCS: 99214

== ENCOUNTER → 2024-10-14 07:57 | Outpatient (BNVA) | payer OTHER, SELFPAY | PROVIDERS: PCP Internal Medicine; Visit Provider Psychiatry & Neurology Neurology | DX: R56.9 Unspecified convulsions (principal); G93.49 Other encephalopathy | CPT/HCPCS: 99212 ==

== ENCOUNTER 2025-04-28 08:07 | Outpatient (AMB) | payer OTHER, SELFPAY ==
--- NOTE | 2025-04-28 08:08 | MHC.OFFVIS ---
Vital Signs 04/28/25 08:09 Height 4 ft 10 in Weight 88 lb 8 oz BMI 18.5 BP 102/70 Blood Pressure Location Rt brachial Position Sitting Pulse 60 Pulse Source Pulse Oximeter Pulse Oximetry (%) 100 Oxygen Delivery Method Room Air Intake Visit Reasons: 6 mnts f/u appt Intake Note: Follow up Static encephalopathy and seizures Underbaster Required: No Accompanied by: Mother Allergies amoxicillin Allergy (Intermediate, Verified 04/28/25 08:08) rash orange juice Allergy (Unknown, Verified 04/28/25 08:08) Hives tomato Allergy (Unknown, Verified 04/28/25 08:08) Hives Medication List - Last Reconciled 04/28/25 by Ina Terrazas MD cholecalciferol (vitamin D3) 10 mcg PO DAILY dorzolamide-timolol 22.3-6.8 mg/mL 1 drp ophthalmic (eye) BID fluocinonide 0.05% topical 3XW ketoconazole 2% topical ketoconazole 2% 1 appl topical BID Lamictal (lamotrigine) 100 mg PO BID 30 days NS polyethylene glycol 3350 (Miralax) 17 grams PO DAILY tretinoin 0.05% (Retin-A) appl topical HPI Comments Details: 39y/o female with static encephelopathy,developmental delay, blindness comes for follow up of her seizure disorder. She is accompanied by mother who help with history. No seizure . Her weight has stabilized. OTC refresh drops helps her eyes. she is doing good.Her ears are good.No episodes of eye discomfort. Her seizures are stable on lamictal 100mg bid. Her bowel movements are better. Mood is OK. Sleep is good. [facility], [facility] Medical History Developmental delay of gross and fine motor function Seizures Blindness Static encephalopathy Surgical History H/O eye surgery Social History Alcohol intake: never Patient Tobacco Use Status: Never used Tobacco Physical Exam Vital Signs: Last Vital Signs Pulse 60 04/28/25 08:09 BP 102/70 04/28/25 08:09 Pulse Ox 100 04/28/25 08:09 Oxygen Delivery Method Room Air 04/28/25 08:09 BMI result Body Mass Index 18.5 Const General: cooperative, healthy appearing and comfortable Nutritional Appearance: average body habitus Orientation/consciousness: oriented to person Neuro Other: mild lordosis and tilt to left General: oriented to person, moves all extremities and no focal motor deficits Assessment & Plan Assessment & Plan (1) Seizures: Code(s): R56.9 - Unspecified convulsions Category: Medical (2) Static encephalopathy: Code(s): G93.49 - Other encephalopathy Category: Medical Plan continue lamictal 100mg bid- BRAND NAME ONLY .Patient has reaction to generic lamotrigine with breakthrough seizures. Continue OTC refresh drops continue vitamins Medications: Refilled Lamictal (lamotrigine) Needs name brand only - patient has reaction to generic lamotrigine 100 mg PO BID 60 tabs 6RF 30 days NS Coding Level of Care Code Est Pt Level 4 (83617) Complex EM visit Add On G2211 Diagnoses Seizures R56.9 Static encephalopathy G93.49
[2025-04-28 08:09] VITALS: BP 102/70; PULSE 60; O2SAT 100; BMI 18.5
== END 2025-04-28 08:33 | disposition home or self-care (01) ==
LOC: HO.HSMS 08:07
PROVIDERS: PCP Internal Medicine; Visit Provider Psychiatry & Neurology Neurology
DX: R56.9 Unspecified convulsions (principal); G93.49 Other encephalopathy
CPT/HCPCS: 99214; G2211

== ENCOUNTER → 2025-04-28 08:07 | Outpatient (BNVA) | payer MEDICARE, MEDICAID, SELFPAY | PROVIDERS: PCP Internal Medicine; Visit Provider Psychiatry & Neurology Neurology | DX: R56.9 Unspecified convulsions (principal); G93.49 Other encephalopathy | CPT/HCPCS: 99212 ==